=== PATIENT | female | born 1955 | race Caucasian/White ===

== ENCOUNTER 2017-12-15 09:50 | Outpatient (CLI) | payer MEDICARE ==
--- NOTE | 2017-12-16 14:04 | Mammography Report ---
Reason: SCREENING MAMMO Procedure Date: 12/15/2017 Accession Number: [id number] / [id number] Procedure: [facility] - Screening Mammo Dig Bilat CPT Code: FULL RESULT: EXAM: Screening Mammo Dig Bilat DATE: 12/15/2017 10:10 AM CLINICAL HISTORY: 62-year-old female presents for screening mammogram. TECHNIQUE: Bilateral CC and MLO views were obtained. COMPARISON: 11/28/2014, 10/03/2013, 02/11/2012. FINDINGS: The breasts demonstrate diffuse fatty replacement bilaterally. No suspicious masses, clustered microcalcifications, or regions of architectural distortion are identified. IMPRESSION: Negative examination RECOMMENDATION: Routine annual screening unless otherwise clinically indicated. BIRADS CATEGORY 1: Negative STANDARD QUALIFYING STATEMENTS: 1. This examination was not reviewed with the aid of Computer-Aided Detection (CAD). 2. A negative or benign imaging report should not delay biopsy if clinically suspicious findings are present. Consider surgical consultation if warrented. More than 5% of cancers are not identified by imaging. 3. Dense breasts may obscure an underlying neoplasm. 4. This examination was reviewed without the aid of 3D breast imaging (tomosynthesis).
== END 2017-12-15 09:51 | disposition home or self-care (01) ==
LOC: DI 09:50
PROVIDERS: ATTEND Internal Medicine
DX: Z12.31 Encounter for screening mammogram for malignant neoplasm of breast (principal)
CPT/HCPCS: 77067

== ENCOUNTER 2019-02-22 11:21 | Emergency (ER) | payer MEDICARE ==
[2019-02-22 11:42] VITALS: BP 170/93
[2019-02-22 13:08] LABS: BASOPHILS % (AUTO) 0.5 %; EOSINOPHILS # (AUTO) 0.2 10^3/uL (0.0-0.7); HGB - HEMOGLOBIN 13.5 g/dL (12.0-16.0); LYMPHOCYTES % (AUTO) 16.2 %; MEAN CORPUSCULAR HEMOGLOBIN 29.9 pg (27.0-31.0); MEAN CORPUSCULAR VOLUME 93.6 fL (81.0-99.0); MEAN PLATELET VOLUME 10.5 fL (7.9-10.8); MONOCYTES # (AUTO) 0.3 10^3/uL (0.0-1.0); MONOCYTES % (AUTO) 4.3 %; NEUTROPHILS # (AUTO) 4.7 10^3/uL (1.5-6.6); NEUTROPHILS % (AUTO) 75.7 %; PLT - PLATELET COUNT 235 10^3/uL (130-450); RED BLOOD COUNT 4.51 10^6/uL (4.20-5.40); RED CELL DISTRIBUTION WIDTH 13.4 % (12.0-15.0); WHITE BLOOD COUNT 6.2 x10^3/uL (4.8-10.8)
[2019-02-22 13:20] LABS: CALCIUM 9.2 mg/dL (8.5-10.3); CREATININE 0.8 mg/dL (0.4-1.0)
--- NOTE | 2019-03-01 11:56 | ED Physician Documentation ---
PD HPI LOWER EXT INJURY - Stated complaint Stated Complaint: R LEG PX - Chief complaint Chief Complaint: Ext Problem - History obtained from History obtained from: Patient - History of Present Illness PD HPI LOW EXT INJURY LOCATION: Right, Lower leg Type of injury: Other (no injury) Where injury occurred: Home Timing - onset: How many days ago (2) Timing - duration: Days (2) Timing - details: Gradual onset Severity Comments: moderate Improved by: Other (nothing) Worsened by: Other (nothing) Associated symptoms: Swelling, Discolored Contributing factors: Other (none) Similar symptoms before: Has not had sx before Recently seen: Not recently seen - Treatment prior to arrival Treatment prior to arrival: none - Additional information Additional information: States leg ache started in her right thigh now feels it is in her right calf and though that it might be discolored but states she thinks the color is actually improving. Denies recent surgery, travel or injury. Review of Systems Ten Systems: 10 systems reviewed and negative Constitutional: reports: Reviewed and negative Cardiac: reports: Reviewed and negative Respiratory: reports: Reviewed and negative GI: reports: Reviewed and negative Skin: reports: Reviewed and negative Musculoskeletal: reports: Extremity pain Neurologic: reports: Reviewed and negative Psychiatric: reports: Reviewed and negative Endocrine: reports: Reviewed and negative Immunocompromised: reports: Reviewed and negative PD PAST MEDICAL HISTORY - Past Medical History Past Medical History: Yes Cardiovascular: Hypertension, High cholesterol Respiratory: Asthma - Present Medications Home Medications: Ambulatory Orders Medication Instructions Recorded Confirmed Albuterol 1 neb PO Q6HR 07/27/15 07/27/15 Captopril 50 mg PO TID 07/27/15 07/27/15 Doxycycline Monohydrate 100 mg PO BID #14 tablet 07/27/15 Ipratropium/Albuterol [Duoneb] 1 neb PO Q4HR 07/27/15 07/27/15 Levothyroxine [Synthroid] 100 mcg PO DAILY 07/27/15 07/27/15 Simvastatin 40 mg PO DAILY 07/27/15 07/27/15 hydroCHLOROthiazide [Hydrodiuril] 25 mg PO DAILY 07/27/15 07/27/15 predniSONE [Deltasone] 60 mg PO DAILY 5 Days tablet 07/27/15 - Allergies Allergies/Adverse Reactions: Allergies Allergy/AdvReac Type Severity Reaction Status Date / Time No Known Drug Allergies Allergy Verified 02/22/19 11:36 - Social History Does the pt smoke?: No Smoking Status: Never smoker PD ED PE NORMAL - Vitals Vital signs reviewed: Yes - General General: Alert and oriented X 3, No acute distress, Well developed/nourished - HEENT HEENT: Atraumatic, Pharynx benign - Neck Neck: Supple, no meningeal sign - Cardiac Cardiac: RRR - Respiratory Respiratory: No respiratory distress - Abdomen Abdomen: Soft, Non distended - Female Female : Deferred - Rectal Rectal: Deferred - Derm Derm: Normal color, Warm and dry, No rash, Other (both legs are normal color, pink, warm) - Extremities Extremities: No deformity, No tenderness to palpate, Normal ROM s pain, No edema, No calf tenderness / cord, Other (2+ R pedal and PT pulses) - Neuro Neuro: Alert and oriented X 3 Eye Opening: Spontaneous Motor: Obeys Commands Verbal: Oriented GCS Score: 15 - Psych Psych: Normal mood, Normal affect Results - Vitals Vitals: Oxygen O2 Source Room air - Labs Labs: Laboratory Tests 02/22/19 02/22/19 02/22/19 13:02 13:02 13:02 WBC 6.2 RBC 4.51 Hgb 13.5 Hct 42.2 MCV 93.6 MCH 29.9 MCHC 32.0 RDW 13.4 Plt Count 235 MPV 10.5 Neut # (Auto) 4.7 Lymph # (Auto) 1.0 L Custer # (Auto) 0.3 Eos # (Auto) 0.2 Baso # (Auto) 0.0 Absolute Nucleated RBC 0.00 Nucleated RBC % 0.0 Sodium 138 Potassium 4.4 Chloride 100 L Carbon Dioxide 30 Anion Gap 8.0 BUN 15 Creatinine 0.8 Estimated GFR (MDRD) 73 L Glucose 166 H Lactic Acid 0.9 Calcium 9.2 Total Creatine Kinase 107 PD MEDICAL DECISION MAKING - ED course Complexity details: considered differential, d/w patient ED course: 63 y/o F with hx and exam as documented, ordered imaging of R lower rextremity but patient did not want to wait for the test and left AMA. Has f/u with PCP and understands risks and benefits and that she can return any time for further evaluation and care. Departure - Departure Disposition: 07 Against Medical Advice Clinical Impression: Pain of lower extremity Qualifiers: Laterality: right Qualified Code(s): M79.604 - Pain in right leg Discharge Date/Time: 02/22/19 14:23
== END 2019-02-22 14:23 | disposition left against medical advice (07) ==
LOC: ED 11:21
DX: M79.661 Pain in right lower leg (principal); I10 Essential (primary) hypertension; Z53.20 Procedure and treatment not carried out because of patient's decision for unspecified reasons
CPT/HCPCS: 36415; 80048; 82550; 83605; 85025; 99282; 99284

== ENCOUNTER 2019-03-10 12:41 | Outpatient (CLI) | payer MEDICARE ==
--- NOTE | 2019-03-10 18:26 | Ultrasound Report ---
Reason: PALPABLE MASS RT CALF Procedure Date: 03/10/2019 Accession Number: [id number] / [id number] Procedure: US - Duplex Lwr Ext Arterial RT CPT Code: Final Report FULL RESULT: EXAM: RIGHT LOWER EXTREMITY ARTERIAL DOPPLER ULTRASOUND EXAM DATE: 03/10/2019 03:58 PM. CLINICAL HISTORY: Palpable mass right calf. COMPARISON: None. TECHNIQUE: Real-time sonographic vascular imaging was performed by the shellfish meat separator operator, utilizing color-flow, Doppler flow, and spectral analysis. Multiple textile designs sales representative static images were saved for review. FINDINGS: Grayscale and color Doppler evaluation of the right lower extremity arteries demonstrates mild to moderate diffuse atherosclerotic plaque. There are primarily monophasic waveforms from the common femoral through dorsalis pedis arteries. No occlusions or high-grade stenosis otherwise seen. There is no evidence of mass or aneurysm corresponding to posterior calf palpable findings. Right Leg: SUPERVISOR POST WAVE: PSV 16 cm/sec. Monophasic waveform. PSFA: PSV 56 cm/sec. Monophasic waveform. MSFA: PSV 56 cm/sec. Monophasic waveform. DSFA: PSV 48 cm/sec. Monophasic waveform. PFA: PSV 45-15 cm/sec. Monophasic waveform. POP: PSV 41 cm/sec. Monophasic waveform. ANGELA: PSV 16 cm/sec. Monophasic waveform. [employer] SUPERVISOR: PSV 15 cm/sec. Monophasic waveform. PER: PSV 15 cm/sec. Monophasic waveform. DPA: PSV 13 cm/sec. Monophasic waveform. IMPRESSION: 1. No evidence of posterior calf mass or aneurysm. 2. Diffuse atherosclerotic changes without evidence of high-grade stenosis. [facility] The call report notification system was initiated by Dr. Bob Carr at 06:25 PM on 03/10/2019.
== END 2019-03-10 12:42 | disposition home or self-care (01) ==
LOC: DI 12:41
PROVIDERS: ATTEND Internal Medicine
DX: I70.201 Unspecified atherosclerosis of native arteries of extremities, right leg (principal)

== ENCOUNTER 2019-03-16 11:23 | Outpatient (CLI) | payer MEDICARE ==
[2019-03-16] MEDS ORDERED: IOVERSOL 320 100 ML VIAL IVP ONE ×2 (11:28→14:24)
--- NOTE | 2019-03-16 13:35 | CT Report ---
Reason: RT LOWER LEG PX, MASS IN CALF Procedure Date: 03/16/2019 Accession Number: [id number] / [id number] Procedure: CT - LOWER EXTREMITY W - RT CPT Code: Final Report FULL RESULT: EXAM: RIGHT LOWER EXTREMITY CT WITH CONTRAST EXAM DATE: 03/16/2019 12:11 PM. CLINICAL HISTORY: Right lower leg pain. Calf mass or swelling. COMPARISON: None. TECHNIQUE: Thin-section axial images were acquired of the lower extremity from the knee to the foot after administration of intravenous contrast. IV contrast: 100ML OPTIRAY 100. Post-processing: Coronal and sagittal reformats. Other: None. In accordance with CT protocol optimization, one or more of the following dose reduction techniques were utilized for this exam: automated exposure control, adjustment of mA and/or KV based on patient size, or use of iterative reconstructive technique. FINDINGS: Bones: No fracture or bone lesion. Joints: The visualized joint spaces are normal. Musculature: Normal. No fatty atrophy. Other: Subcutaneous edema and mild swelling at the heel. The subcutaneous fat at the calf is unremarkable. No abnormal cystic or solid masses are seen. IMPRESSION: 1. Subcutaneous edema and mild swelling at the heel. 2. No abnormal cystic or solid masses are seen at the right calf. [facility]
== END 2019-03-16 11:24 | disposition home or self-care (01) ==
LOC: DI 11:23
PROVIDERS: ATTEND Internal Medicine
DX: M79.661 Pain in right lower leg (principal); R60.0 Localized edema
CPT/HCPCS: 73701; Q9967